=== PATIENT | female | born 1985 | race Two or more races ===

== ENCOUNTER 2018-10-06 09:34 | Emergency (ER) | payer OTHER ==
[~2018-10-06] VITALS: Ht 162.6 cm; Wt 90.7 kg
== END 2018-10-06 13:16 | disposition home or self-care (01) ==
LOC: ER 09:34
DX: M94.0 Chondrocostal junction syndrome [Tietze] (principal)

== ENCOUNTER 2019-08-28 22:31 | Emergency (ER) | payer OTHER ==
[~2019-08-28] VITALS: Ht 162.6 cm; Wt 90.7 kg
[2019-08-29] MEDS ORDERED: NORFLEX100MG PO (03:19)
[2019-08-29] MEDS ORDERED: KETO10TA2 PO (03:19)
== END 2019-08-29 03:27 | disposition home or self-care (01) ==
LOC: ER 22:31
DX: S80.02XA Contusion of left knee, initial encounter (principal); S70.12XA Contusion of left thigh, initial encounter; S70.01XA Contusion of right hip, initial encounter; W18.39XA Other fall on same level, initial encounter; Y93.89 Activity, other specified; Y92.098 Other place in other non-institutional residence as the place of occurrence of the external cause; Y99.8 Other external cause status

== ENCOUNTER 2023-04-29 22:55 | Emergency (ER) | payer OTHER ==
[~2023-04-29] VITALS: Ht 162.6 cm; Wt 105.7 kg
[~2023-04-29 22:55] MED LIST: KETO10TA2 PO; NORFLEX100MG PO
== END 2023-04-30 02:44 | disposition home or self-care (01) ==
LOC: ER 22:55
DX: J45.909 Unspecified asthma, uncomplicated (principal)

== ENCOUNTER 2023-07-26 22:33 | Emergency (ER) | payer OTHER ==
[~2023-07-26] VITALS: Ht 167.6 cm; Wt 106.6 kg
== END 2023-07-26 23:23 | disposition home or self-care (01) ==
LOC: ER 22:34
DX: M94.0 Chondrocostal junction syndrome [Tietze] (principal)
CPT/HCPCS: 93005; 96372; 99284; J1885

== ENCOUNTER 2023-12-15 17:38 | Emergency (ER) | payer OTHER ==
[~2023-12-15] VITALS: Ht 162.6 cm; Wt 111.1 kg
[2023-12-15] MEDS ORDERED: KETOROLAC TROMETHAMINE 60 MG VIAL IM ONE (19:00)
[2023-12-15] MEDS ORDERED: DICLOFENAC SODI75 MG PO (19:44)
== END 2023-12-15 20:57 ==
LOC: ER 17:39
DX: M25.571 Pain in right ankle and joints of right foot (principal); J45.909 Unspecified asthma, uncomplicated; M77.31 Calcaneal spur, right foot
CPT/HCPCS: 73610; 96372; 99283; J1885

== ENCOUNTER 2025-06-05 21:50 | Emergency (ER) | payer OTHER ==
[~2025-06-05] VITALS: Ht 162.6 cm; Wt 99.8 kg
[~2025-06-05 21:50] MED LIST changes: +DICLOFENAC SODI75 MG PO
[2025-06-05] MEDS ORDERED: ACETAMINOPHEN 325 MG TABLET PO ONE (22:30)
[2025-06-05] MEDS ORDERED: CETIRIZINE HCL 5 MG/5 ML ML PO ONE (22:30)
[2025-06-05] MEDS ORDERED: BENZONATATE 100 MG CAPSULE PO ONE (22:30)
[2025-06-05 23:15] LABS: BASO % 0.3 % (0.1-1.2); EOS # 0.22 (0.04-0.54); EOS % 2.3 % (0.7-7.0); LYMPH # 2.10 (1.18-3.74); LYMPH % 22.3 % (19.3-53.1); MEAN PLATELET VOLUME 11.00 fl (9.4-12.4); MONO # 0.78 (0.24-0.82); MONO % 8.3 % (4.7-12.5); NEUT # 6.25 (1.56-6.13); NEUT % 66.6 % (34.0-71.1); RED CELL DISTRIBUTION WIDTH 15.3 % (11.6-14.4)
[2025-06-05] MEDS ORDERED: ZYRTEC10 MG PO (23:53)
[2025-06-05] MEDS ORDERED: BENZONATATE200 M1 PO (23:53)
[2025-06-05] MEDS ORDERED: PEPCID AC20 MG PO (23:53)
[2025-06-06 00:14] LABS: COVID-19 AG POSITIVE (NEGATIVE)
[2025-06-06 00:22] VITALS: BP 125/87; O2SAT 99
== END 2025-06-06 00:23 | disposition home or self-care (01) ==
LOC: ER 21:50
PROVIDERS: General Practice
DX: U07.1 COVID-19 (principal); R09.81 Nasal congestion; J00 Acute nasopharyngitis [common cold]; J45.909 Unspecified asthma, uncomplicated